=== PATIENT | female | born 1940 | race Caucasian/White ===

== ENCOUNTER 2016-09-17 15:49 | Emergency (ER) | payer MEDICARE, BC ==
[~2016-09-17] VITALS: Ht 167.6 cm; Wt 56.7 kg
[2016-09-17] MEDS ORDERED: ASPI81TA31 PO (16:06)
[2016-09-17] MEDS ORDERED: LEXAPRO (16:06)
[2016-09-17] MEDS ORDERED: VALSARTAN (16:06)
[2016-09-17] MEDS ORDERED: SYNTHROID (16:06)
--- NOTE | 2016-09-17 16:22 | NUR ---
MSE COMPLETED, STERI-STREPS PLACED OVER RT HAND SKINTEAR, THEN 4X4 GAUZE AND COMFORMING BANDAGED TO SITE. PT THEN D/C'D HOME, ACI GIVEN. PT AMBULATED W/O DIFF/TOOKA LL BELONGINGS
[2016-09-17 16:33] VITALS: BP 118/52
== END 2016-09-17 16:34 | disposition home or self-care (01) ==
LOC: ER 15:50
DX: S61.411A Laceration without foreign body of right hand, initial encounter (principal); E78.5 Hyperlipidemia, unspecified; I10 Essential (primary) hypertension; Z79.82 Long term (current) use of aspirin; E03.9 Hypothyroidism, unspecified; Z88.8 Allergy status to other drugs, medicaments and biological substances; X58.XXXA Exposure to other specified factors, initial encounter; Y93.89 Activity, other specified; Y92.89 Other specified places as the place of occurrence of the external cause; Y99.8 Other external cause status
CPT/HCPCS: A4663